=== PATIENT | female | born 1940 | race African-American/Black ===

== ENCOUNTER 2021-05-01 01:29 | Inpatient (IN) | payer MEDICAID, MEDICARE ==
[~2021-05-01] VITALS: Ht 154.9 cm; Wt 71.7 kg
[2021-05-01] VITALS (8 sets, daily range): BP systolic 146–172; BP diastolic 74–104
--- NOTE | 2021-05-01 01:39 | NUR ---
THIS IS AN 81F BIB EMS FROM [facility] FOR CVA, PER EMS REPORT PT UNK LAST WELL PER PT SHE WAS ABLE TO AMBULATE AROUND 0800. PER EMS PT BECAME UNRESPONSIVE EN ROUTE AND REQUIRED BAGGING TO MAINTAIN SATS. WHEN PT ARRIVED PT WAS BREATHING WITHOUT ASSISTANCE, MAINTAINING AIRWAY. VSS, NADN. HOWEVER PT PRESENTS WITH SEVERE LEFT SIDED DEFICITS. PER EMS PT HAD REPORTED WANTING TO BE DNR/ DNI HOWEVER THIS IS NOT DOCUMENTED ANYWHERE.
[2021-05-01 02:00] LABS: MEAN CORPUSCULAR HEMOGLOBIN 28.5 pg (27.0-34.8); MEAN CORPUSCULAR HGB CONC 33.8 g/dL (32.4-35.8); PLATELET COUNT 181 x10^3/uL (130-400); RED BLOOD COUNT 5.04 x10^6/uL (3.82-5.3); RED CELL DISTRIBUTION WIDTH 14.6 % (9.6-15.2)
[2021-05-01] MEDS ORDERED: SODIUM CHLORIDE 0.9% 1,000 ML IV ONE (02:00)
[2021-05-01] MEDS ORDERED: SODIUM CHLORIDE FLUSH 10ML SYR IVF ONE (02:00)
[2021-05-01 02:01] LABS: BASOPHILS % (AUTO) 0 % (0-1); EOSINOPHILS % (AUTO) 0 % (1-7); LYMPHOCYTES % (AUTO) 5 % (22-44); MEAN PLATELET VOLUME 9.2 fL (7.4-10.4); MONOCYTES % (AUTO) 8 % (2-9); NEUTROPHILS % (AUTO) 87 % (42-75)
[2021-05-01 02:13] LABS: ALANINE AMINOTRANSFERASE 33 U/L (12-78); ALBUMIN 2.9 g/dL (3.4-5.0); ANION GAP 9 mmol/L (5-15); CALCIUM 9.2 mg/dL (8.5-10.1); CHLORIDE 107 mmol/L (98-107); CREATININE 0.55 mg/dL (0.55-1.02)
[2021-05-01 02:15] LABS: ALKALINE PHOSPHATASE 65 U/L (45-117); INTERNATIONAL NORMALIZED RATIO 1.08 (0.93-1.1); PROTHROMBIN TIME 11.5 Seconds (9.6-11.5); TOTAL PROTEIN 7.5 g/dL (6.4-8.2)
--- NOTE | 2021-05-01 02:28 | NUR ---
PT RESTING ON YVROSE BOOKER RESP EVEN UNLABORED AT THIS TIME
--- NOTE | 2021-05-01 03:06 | NUR ---
PT RESTING ON YVROSE BOOKER RESP EVEN UNLABORED AT THIS TIME
--- NOTE | 2021-05-01 03:09 | NUR ---
REPORT TO [facility], ALL QUESTIONS ADDRESSED PT READY FOR TRANSFER
[2021-05-01 06:01] LABS: BASOPHILS % (AUTO) 0 % (0-1); EOSINOPHILS % (AUTO) 0 % (1-7); LYMPHOCYTES % (AUTO) 4 % (22-44); MEAN CORPUSCULAR HEMOGLOBIN 28.4 pg (27.0-34.8); MEAN CORPUSCULAR HGB CONC 33.2 g/dL (32.4-35.8); MEAN PLATELET VOLUME 9.4 fL (7.4-10.4); MONOCYTES % (AUTO) 9 % (2-9); NEUTROPHILS % (AUTO) 86 % (42-75); PLATELET COUNT 166 x10^3/uL (130-400); RED BLOOD COUNT 4.87 x10^6/uL (3.82-5.3); RED CELL DISTRIBUTION WIDTH 14.8 % (9.6-15.2)
[2021-05-01] MEDS: SODIUM CHLORIDE 0.9% 1,000 ML IV SCH ×2 (06:05→15:00)
[2021-05-01 06:13] LABS: ALBUMIN 2.8 g/dL (3.4-5.0); ANION GAP 8 mmol/L (5-15); CALCIUM 9.1 mg/dL (8.5-10.1); CHLORIDE 108 mmol/L (98-107)
[2021-05-01 06:17] LABS: ALANINE AMINOTRANSFERASE 293 U/L (12-78); ALKALINE PHOSPHATASE 64 U/L (45-117); BILIRUBIN,TOTAL 0.8 mg/dL (0.2-1.0); CREATININE 0.49 mg/dL (0.55-1.02); TOTAL PROTEIN 7.1 g/dL (6.4-8.2)
[2021-05-01] MEDS: ASPIRIN 81 MG TABLET CHEW PO/NG SCH (09:00)
[2021-05-01] MEDS ORDERED: LEVO75TA PO ×2 (16:58)
[2021-05-01] MEDS ORDERED: LEVO88TA2 PO (16:58)
[2021-05-01] MEDS: ATORVASTATIN 40 MG TABLET PO SCH (21:00)
[2021-05-01] MEDS: CIPROFLOXACIN OPHTH SOLN 0.3%, 5ML RIGHTEYE SCH (21:12)
[2021-05-01] MEDS ORDERED: METOPROLOL 1 MG/ML, 5ML ONE (23:53)
[2021-05-02] VITALS (8 sets, daily range): BP systolic 150–182; BP diastolic 82–104
[2021-05-02] MEDS ORDERED: POTASSIUM CHLORIDE 40 MEQ in SODIUM CHLORIDE 0.9% 500 ML IV ONE
[2021-05-02] MEDS ORDERED: ADENOSINE 6 MG/2 ML IVPush ONE
[2021-05-02] MEDS: CIPROFLOXACIN OPHTH SOLN 0.3%, 5ML RIGHTEYE SCH ×6 (00:12→21:26)
[2021-05-02] MEDS ORDERED: LABETALOL 5MG/ML, 20ML IVPush ONE (04:30)
[2021-05-02 04:34] LABS: BASOPHILS % (AUTO) 0 % (0-1); EOSINOPHILS % (AUTO) 0 % (1-7); LYMPHOCYTES % (AUTO) 11 % (22-44); MEAN CORPUSCULAR HEMOGLOBIN 28.5 pg (27.0-34.8); MEAN CORPUSCULAR HGB CONC 33.2 g/dL (32.4-35.8); MEAN PLATELET VOLUME 9.5 fL (7.4-10.4); MONOCYTES % (AUTO) 6 % (2-9); NEUTROPHILS % (AUTO) 82 % (42-75); PLATELET COUNT 160 x10^3/uL (130-400); RED BLOOD COUNT 4.71 x10^6/uL (3.82-5.3); RED CELL DISTRIBUTION WIDTH 14.9 % (9.6-15.2)
[2021-05-02 04:41] LABS: ALANINE AMINOTRANSFERASE 896 U/L (12-78); ALBUMIN 2.4 g/dL (3.4-5.0); ANION GAP 6 mmol/L (5-15); CALCIUM 8.3 mg/dL (8.5-10.1); CHLORIDE 116 mmol/L (98-107)
[2021-05-02 04:50] LABS: ALKALINE PHOSPHATASE 63 U/L (45-117); BILIRUBIN,TOTAL 0.7 mg/dL (0.2-1.0); CHOL/HDL RATIO 1.9; CHOLESTEROL, TOTAL 190 mg/dL (140-239); CREATININE 0.37 mg/dL (0.55-1.02); FREE T4 (FREE THYROXINE) 1.18 ng/dL (0.76-1.46); HDL CHOL % 52 % (28-40); HDL CHOLESTEROL (DIRECT) 98 mg/dL (40-60); LDL CHOLESTEROL,CALCULATED 75 mg/dL (54-169); LDL/HDL RATIO 0.8 (0.5-3.0); TOTAL PROTEIN 6.4 g/dL (6.4-8.2); TRIGLYCERIDES 84 mg/dL (50-200); VLDL CHOLESTEROL 17 mg/dL (0-25)
[2021-05-02] MEDS: SODIUM CHLORIDE 0.9% 1,000 ML IV SCH ×2 (08:00→21:27)
[2021-05-02] MEDS: ASPIRIN 81 MG TABLET CHEW PO/NG SCH (08:54)
[2021-05-02] MEDS ORDERED: ENALAPRILAT 1.25 MG/ML, 2ML IV PRN ×2 (13:00→17:00)
[2021-05-02] MEDS ORDERED: ASPIRIN 300 MG SUPP PR ONE (13:30)
[2021-05-02] MEDS: ATORVASTATIN 40 MG TABLET PO SCH (21:26)
[2021-05-02] MEDS ORDERED: OMNIPAQUE 350 MG/ML, 75ML BOTTLE ONE (23:15)
[2021-05-03] MEDS ORDERED: KETOROLAC 30 MG/1 ML IVPush ONE (00:30)
[2021-05-03 00:44] VITALS: BP_SYST 163; BP_SYST 175; BP_DIAS 82; BP_DIAS 99
[2021-05-03 03:44] LABS: BASOPHILS % (AUTO) 0 % (0-1); EOSINOPHILS % (AUTO) 0 % (1-7); LYMPHOCYTES % (AUTO) 11 % (22-44); MEAN CORPUSCULAR HEMOGLOBIN 28.1 pg (27.0-34.8); MEAN CORPUSCULAR HGB CONC 32.9 g/dL (32.4-35.8); MEAN PLATELET VOLUME 9.5 fL (7.4-10.4); MONOCYTES % (AUTO) 8 % (2-9); NEUTROPHILS % (AUTO) 81 % (42-75); PLATELET COUNT 168 x10^3/uL (130-400); RED BLOOD COUNT 4.37 x10^6/uL (3.82-5.3); RED CELL DISTRIBUTION WIDTH 14.6 % (9.6-15.2)
[2021-05-03 03:57] LABS: CHLORIDE 115 mmol/L (98-107)
[2021-05-03 04:00] VITALS: BP 169/94
[2021-05-03 04:07] LABS: ALANINE AMINOTRANSFERASE 560 U/L (12-78); ALBUMIN 2.2 g/dL (3.4-5.0); ALKALINE PHOSPHATASE 61 U/L (45-117); ANION GAP 8 mmol/L (5-15); BILIRUBIN,TOTAL 0.9 mg/dL (0.2-1.0); CALCIUM 8.2 mg/dL (8.5-10.1); CREATININE 0.29 mg/dL (0.55-1.02); TOTAL PROTEIN 6.2 g/dL (6.4-8.2)
[2021-05-03] MEDS: LEVOTHYROXINE 88 MCG TABLET PO SCH (06:00)
[2021-05-03] MEDS: CIPROFLOXACIN OPHTH SOLN 0.3%, 5ML RIGHTEYE SCH ×5 (06:10→21:30)
[2021-05-03 08:02] VITALS: BP 185/80
[2021-05-03] MEDS: SODIUM CHLORIDE 0.9% 1,000 ML IV SCH ×2 (09:54→21:35)
[2021-05-03] MEDS: ASPIRIN 81 MG TABLET CHEW PO/NG SCH (17:30)
[2021-05-03] MEDS: ATORVASTATIN 40 MG TABLET PO SCH ×2 (21:00→21:35)
[2021-05-04 00:30] VITALS: BP 172/91
[2021-05-04] MEDS: LEVOTHYROXINE 88 MCG TABLET PO SCH ×2 (05:54→06:00)
[2021-05-04] MEDS: CIPROFLOXACIN OPHTH SOLN 0.3%, 5ML RIGHTEYE SCH ×5 (06:10→21:08)
[2021-05-04 06:33] LABS: BASOPHILS % (AUTO) 0 % (0-1); EOSINOPHILS % (AUTO) 1 % (1-7); LYMPHOCYTES % (AUTO) 10 % (22-44); MEAN CORPUSCULAR HEMOGLOBIN 28.5 pg (27.0-34.8); MEAN CORPUSCULAR HGB CONC 33.3 g/dL (32.4-35.8); MEAN PLATELET VOLUME 9.5 fL (7.4-10.4); MONOCYTES % (AUTO) 9 % (2-9); NEUTROPHILS % (AUTO) 80 % (42-75); PLATELET COUNT 169 x10^3/uL (130-400); RED CELL DISTRIBUTION WIDTH 14.5 % (9.6-15.2)
[2021-05-04 06:36] LABS: CHLORIDE 107 mmol/L (98-107)
[2021-05-04 06:42] LABS: ALBUMIN 2.1 g/dL (3.4-5.0); ANION GAP 8 mmol/L (5-15); CALCIUM 8.4 mg/dL (8.5-10.1); CREATININE 0.36 mg/dL (0.55-1.02)
[2021-05-04] MEDS ORDERED: NS + 40MEQ KCL 1,000 ML IV SCH (07:00)
[2021-05-04 07:11] VITALS: BP 167/95
[2021-05-04] MEDS: ASPIRIN 81 MG TABLET CHEW PO/NG SCH (10:56)
[2021-05-04 12:58] VITALS: BP_SYST 112; BP_SYST 155; BP_DIAS 68; BP_DIAS 82
[2021-05-04] MEDS: AMLODIPINE 5 MG TABLET NG SCH (17:49)
[2021-05-04 17:57] VITALS: BP 179/99
[2021-05-04 20:18] VITALS: BP 165/92
[2021-05-04] MEDS: ATORVASTATIN 40 MG TABLET PO SCH (20:59)
[2021-05-05 00:58] VITALS: BP 144/83
[2021-05-05] MEDS ORDERED: LEVOTHYROXINE 75 MCG TABLET PO SCH (06:00)
[2021-05-05] MEDS: CIPROFLOXACIN OPHTH SOLN 0.3%, 5ML RIGHTEYE SCH ×5 (06:18→22:48)
[2021-05-05 07:40] VITALS: BP 152/94
[2021-05-05 09:40] VITALS: BP 141/86
[2021-05-05] MEDS: AMLODIPINE 5 MG TABLET NG SCH (09:42)
[2021-05-05] MEDS: ASPIRIN 81 MG TABLET CHEW PO/NG SCH (09:43)
[2021-05-05 12:39] VITALS: BP 130/86
[2021-05-05] MEDS: LIDODERM 5% PATCH TD SCH (17:31)
[2021-05-05] MEDS ORDERED: LEVOTHYROXINE 75 MCG TABLET PO ONE (18:00)
[2021-05-05 18:58] VITALS: BP 157/84
[2021-05-05] MEDS: ATORVASTATIN 40 MG TABLET PO SCH (21:00)
[2021-05-06 02:16] VITALS: BP 150/80
[2021-05-06] MEDS: CIPROFLOXACIN OPHTH SOLN 0.3%, 5ML RIGHTEYE SCH ×5 (05:55→21:39)
[2021-05-06] MEDS ORDERED: LEVOTHYROXINE 75 MCG TABLET PO SCH (06:00)
[2021-05-06 07:28] VITALS: BP 149/92
[2021-05-06 07:38] VITALS: BP 149/92
[2021-05-06] MEDS: ASPIRIN 81 MG TABLET CHEW PO/NG SCH (11:31)
[2021-05-06] MEDS: AMLODIPINE 5 MG TABLET NG SCH (11:31)
[2021-05-06] MEDS ORDERED: SODIUM CHLORIDE NASAL SPRAY 45ML BOTTLE NAS PRN (15:00)
[2021-05-06 18:00] VITALS: BP 132/79
[2021-05-06] MEDS: LISINOPRIL 20 MG TABLET NG SCH (18:21)
[2021-05-06] MEDS: LIDODERM 5% PATCH TD SCH (18:22)
[2021-05-06] MEDS: ATORVASTATIN 40 MG TABLET PO SCH (21:39)
[2021-05-06 21:58] VITALS: BP 156/92
[2021-05-07] VITALS (7 sets, daily range): BP systolic 120–146; BP diastolic 77–84
[2021-05-07] MEDS ORDERED: MORPHINE SULFATE 4 MG/ML, 1ML IVPush PRN (05:30)
[2021-05-07] MEDS ORDERED: BACLOFEN 10 MG TABLET PO PRN (05:30)
[2021-05-07] MEDS: CIPROFLOXACIN OPHTH SOLN 0.3%, 5ML RIGHTEYE SCH ×5 (05:36→22:01)
[2021-05-07] MEDS ORDERED: LEVOTHYROXINE 75 MCG TABLET PO SCH (06:00)
[2021-05-07] MEDS: AMLODIPINE 5 MG TABLET NG SCH (10:07)
[2021-05-07] MEDS: LISINOPRIL 20 MG TABLET NG SCH (10:07)
[2021-05-07] MEDS: ASPIRIN 81 MG TABLET CHEW PO/NG SCH (10:07)
[2021-05-07 12:39] LABS: BASOPHILS % (AUTO) 0 % (0-1); EOSINOPHILS % (AUTO) 3 % (1-7); LYMPHOCYTES % (AUTO) 12 % (22-44); MEAN CORPUSCULAR HEMOGLOBIN 27.5 pg (27.0-34.8); MEAN CORPUSCULAR HGB CONC 32.1 g/dL (32.4-35.8); MEAN PLATELET VOLUME 9.5 fL (7.4-10.4); MONOCYTES % (AUTO) 9 % (2-9); NEUTROPHILS % (AUTO) 76 % (42-75); PLATELET COUNT 202 x10^3/uL (130-400); RED BLOOD COUNT 5.03 x10^6/uL (3.82-5.3); RED CELL DISTRIBUTION WIDTH 14.2 % (9.6-15.2)
[2021-05-07 13:00] LABS: ANION GAP 6 mmol/L (5-15); CALCIUM 9.5 mg/dL (8.5-10.1); CHLORIDE 107 mmol/L (98-107); CREATININE 0.42 mg/dL (0.55-1.02)
[2021-05-07] MEDS ORDERED: POTASSIUM CHLORIDE 20 MEQ PACKET NG SCH (16:00)
[2021-05-07] MEDS: LIDODERM 5% PATCH TD SCH (16:54)
[2021-05-07] MEDS: POLYETHYLENE GLYCOL 17 GM PACKET NG SCH (20:32)
[2021-05-07] MEDS: ATORVASTATIN 40 MG TABLET PO SCH (20:32)
[2021-05-07] MEDS ORDERED: MORPHINE SULFATE 4 MG/ML, 1ML IVPush ONE (21:30)
[2021-05-08] VITALS (8 sets, daily range): BP systolic 105–157; BP diastolic 54–85
[2021-05-08] MEDS: CIPROFLOXACIN OPHTH SOLN 0.3%, 5ML RIGHTEYE SCH ×5 (05:25→21:03)
[2021-05-08] MEDS ORDERED: LEVOTHYROXINE 75 MCG TABLET PO SCH (06:00)
[2021-05-08] MEDS: POLYETHYLENE GLYCOL 17 GM PACKET NG SCH ×2 (09:00→20:01)
[2021-05-08] MEDS ORDERED: PROPOFOL 10 MG/ML, 20ML ONE (13:14)
[2021-05-08] MEDS ORDERED: LIDOCAINE-MPF 2%, 2ML ONE (13:15)
[2021-05-08] MEDS: AMLODIPINE 5 MG TABLET NG SCH (16:40)
[2021-05-08] MEDS: ASPIRIN 81 MG TABLET CHEW PO/NG SCH (16:41)
[2021-05-08] MEDS: LISINOPRIL 20 MG TABLET NG SCH (16:41)
[2021-05-08] MEDS: LIDODERM 5% PATCH TD SCH ×2 (16:41→17:00)
[2021-05-08] MEDS ORDERED: morphine SULFATE 10 MG/ML, 1ML IVPush ONE (18:00)
[2021-05-08] MEDS: FAMOTIDINE 40 MG/5 ML ORAL SUSP PEG SCH (20:02)
[2021-05-08] MEDS: ATORVASTATIN 40 MG TABLET PO SCH (20:02)
[2021-05-09] VITALS (8 sets, daily range): BP systolic 96–145; BP diastolic 64–87
[2021-05-09 05:05] LABS: BASOPHILS % (AUTO) 0 % (0-1); EOSINOPHILS % (AUTO) 1 % (1-7); LYMPHOCYTES % (AUTO) 6 % (22-44); MEAN CORPUSCULAR HEMOGLOBIN 28.2 pg (27.0-34.8); MEAN CORPUSCULAR HGB CONC 32.9 g/dL (32.4-35.8); MEAN PLATELET VOLUME 9.8 fL (7.4-10.4); MONOCYTES % (AUTO) 7 % (2-9); NEUTROPHILS % (AUTO) 86 % (42-75); PLATELET COUNT 227 x10^3/uL (130-400); RED BLOOD COUNT 4.34 x10^6/uL (3.82-5.3); RED CELL DISTRIBUTION WIDTH 14.3 % (9.6-15.2)
[2021-05-09 05:13] LABS: ANION GAP 7 mmol/L (5-15); CHLORIDE 107 mmol/L (98-107)
[2021-05-09 05:17] LABS: ALANINE AMINOTRANSFERASE 81 U/L (12-78); ALBUMIN 2.1 g/dL (3.4-5.0); ALKALINE PHOSPHATASE 65 U/L (45-117); BILIRUBIN,TOTAL 0.6 mg/dL (0.2-1.0); CALCIUM 8.8 mg/dL (8.5-10.1); CREATININE 0.44 mg/dL (0.55-1.02); TOTAL PROTEIN 6.2 g/dL (6.4-8.2)
[2021-05-09] MEDS ORDERED: LEVOTHYROXINE 75 MCG TABLET PO SCH (06:00)
[2021-05-09] MEDS: CIPROFLOXACIN OPHTH SOLN 0.3%, 5ML RIGHTEYE SCH ×5 (06:34→22:47)
[2021-05-09] MEDS: AMLODIPINE 5 MG TABLET NG SCH (08:12)
[2021-05-09] MEDS: POLYETHYLENE GLYCOL 17 GM PACKET NG SCH ×2 (08:13→21:34)
[2021-05-09] MEDS: LISINOPRIL 20 MG TABLET NG SCH (08:13)
[2021-05-09] MEDS: ASPIRIN 81 MG TABLET CHEW PO/NG SCH (08:13)
[2021-05-09] MEDS: OXYcodone IR 5MG TABLET PO PRN ×2 (11:43→21:35)
[2021-05-09] MEDS: LIDODERM 5% PATCH TD SCH (16:00)
[2021-05-09] MEDS: FAMOTIDINE 40 MG/5 ML ORAL SUSP PEG SCH (21:34)
[2021-05-09] MEDS: ATORVASTATIN 40 MG TABLET PO SCH (21:34)
[2021-05-10] VITALS (8 sets, daily range): BP systolic 123–152; BP diastolic 76–84
[2021-05-10] MEDS: OXYcodone IR 5MG TABLET PO PRN (05:04)
[2021-05-10] MEDS: LEVOTHYROXINE 88 MCG TABLET PO SCH (05:05)
[2021-05-10] MEDS: CIPROFLOXACIN OPHTH SOLN 0.3%, 5ML RIGHTEYE SCH ×5 (05:06→20:55)
[2021-05-10 05:36] LABS: BASOPHILS % (AUTO) 0 % (0-1); EOSINOPHILS % (AUTO) 1 % (1-7); LYMPHOCYTES % (AUTO) 5 % (22-44); MEAN CORPUSCULAR HEMOGLOBIN 27.8 pg (27.0-34.8); MEAN CORPUSCULAR HGB CONC 32.6 g/dL (32.4-35.8); MEAN PLATELET VOLUME 10.3 fL (7.4-10.4); MONOCYTES % (AUTO) 6 % (2-9); NEUTROPHILS % (AUTO) 87 % (42-75); PLATELET COUNT 258 x10^3/uL (130-400); RED BLOOD COUNT 4.49 x10^6/uL (3.82-5.3); RED CELL DISTRIBUTION WIDTH 14.3 % (9.6-15.2)
[2021-05-10 05:47] LABS: CHLORIDE 108 mmol/L (98-107)
[2021-05-10 05:53] LABS: ANION GAP 4 mmol/L (5-15); CREATININE 0.44 mg/dL (0.55-1.02)
[2021-05-10] MEDS: LISINOPRIL 20 MG TABLET NG SCH (09:03)
[2021-05-10] MEDS: AMLODIPINE 5 MG TABLET NG SCH (09:04)
[2021-05-10] MEDS: POLYETHYLENE GLYCOL 17 GM PACKET NG SCH ×2 (09:04→20:55)
[2021-05-10] MEDS: ASPIRIN 81 MG TABLET CHEW PO/NG SCH (09:10)
[2021-05-10] MEDS ORDERED: CIPR2.5D2 RIGHTEYE (13:25)
[2021-05-10] MEDS ORDERED: BACL-19 PO (13:25)
[2021-05-10] MEDS ORDERED: POLY17PO5 NG (13:25)
[2021-05-10] MEDS ORDERED: ASPI-963 PO/NG (13:25)
[2021-05-10] MEDS ORDERED: SODI44SP NAS (13:25)
[2021-05-10] MEDS ORDERED: LISI-170 NG (13:25)
[2021-05-10] MEDS ORDERED: AMLO-150 NG (13:25)
[2021-05-10] MEDS ORDERED: LIDO700A20 TD (13:25)
[2021-05-10] MEDS ORDERED: ATOR40TA78 PO (13:25)
[2021-05-10] MEDS ORDERED: FAMO40OR3 PEG (13:25)
[2021-05-10] MEDS: LIDODERM 5% PATCH TD SCH (16:00)
[2021-05-10] MEDS: ATORVASTATIN 40 MG TABLET PO SCH (20:55)
[2021-05-10] MEDS: FAMOTIDINE 40 MG/5 ML ORAL SUSP PEG SCH (20:55)
[2021-05-11] VITALS (10 sets, daily range): BP systolic 115–164; BP diastolic 72–95
[2021-05-11] MEDS: CIPROFLOXACIN OPHTH SOLN 0.3%, 5ML RIGHTEYE SCH ×5 (06:32→23:54)
[2021-05-11] MEDS: LEVOTHYROXINE 88 MCG TABLET PO SCH (06:32)
[2021-05-11] MEDS: LISINOPRIL 20 MG TABLET NG SCH (10:15)
[2021-05-11] MEDS: POLYETHYLENE GLYCOL 17 GM PACKET NG SCH ×2 (10:15→21:00)
[2021-05-11] MEDS: AMLODIPINE 5 MG TABLET NG SCH (10:16)
[2021-05-11] MEDS: ASPIRIN 81 MG TABLET CHEW PO/NG SCH (10:16)
[2021-05-11] MEDS ORDERED: LACTULOSE 20 GM/30 ML UDC PO ONE (12:30)
[2021-05-11] MEDS: OXYcodone IR 5MG TABLET PO PRN (13:16)
[2021-05-11] MEDS ORDERED: PINK LADY ENEMA 490 ML BOTTLE PR ONE (16:00)
[2021-05-11] MEDS: LIDODERM 5% PATCH TD SCH (16:35)
[2021-05-11] MEDS: ATORVASTATIN 40 MG TABLET PO SCH (23:54)
[2021-05-11] MEDS: FAMOTIDINE 40 MG/5 ML ORAL SUSP PEG SCH (23:54)
[2021-05-12 00:48] VITALS: BP 144/85
[2021-05-12] MEDS: CIPROFLOXACIN OPHTH SOLN 0.3%, 5ML RIGHTEYE SCH ×2 (05:45→11:11)
[2021-05-12 08:03] VITALS: BP 157/94
[2021-05-12] MEDS: POLYETHYLENE GLYCOL 17 GM PACKET NG SCH (09:00)
[2021-05-12] MEDS: ASPIRIN 81 MG TABLET CHEW PO/NG SCH (11:10)
[2021-05-12] MEDS: AMLODIPINE 5 MG TABLET NG SCH (11:11)
[2021-05-12] MEDS: LISINOPRIL 20 MG TABLET NG SCH (11:11)
== END 2021-05-12 12:21 | DRG 64 ==
LOC: ED 02:37 → ICU 03:19 → 4WST 17:21
PROVIDERS: ADMIT Internal Medicine; ATTEND Hospitalist
PROC: 3E0G76Z Introduction of Nutritional Substance into Upper GI, Via Natural or Artificial Opening (ICD-10-PCS; 2021-05-08)
PROC: 0DH63UZ Insertion of Feeding Device into Stomach, Percutaneous Approach (ICD-10-PCS; principal; 2021-05-08 13:00)
DX: I63.411 Cerebral infarction due to embolism of right middle cerebral artery (principal); I61.9 Nontraumatic intracerebral hemorrhage, unspecified; I26.99 Other pulmonary embolism without acute cor pulmonale; G93.6 Cerebral edema; R41.4 Neurologic neglect syndrome; I50.32 Chronic diastolic (congestive) heart failure; I47.1 Supraventricular tachycardia; G81.94 Hemiplegia, unspecified affecting left nondominant side; R47.01 Aphasia; E03.9 Hypothyroidism, unspecified; E87.6 Hypokalemia; H53.40 Unspecified visual field defects; I11.0 Hypertensive heart disease with heart failure; R13.12 Dysphagia, oropharyngeal phase; K59.00 Constipation, unspecified; K44.9 Diaphragmatic hernia without obstruction or gangrene; K22.2 Esophageal obstruction; K29.60 Other gastritis without bleeding; Z86.711 Personal history of pulmonary embolism; Z79.82 Long term (current) use of aspirin; Z79.899 Other long term (current) drug therapy; Z80.3 Family history of malignant neoplasm of breast; Z80.41 Family history of malignant neoplasm of ovary; Z88.8 Allergy status to other drugs, medicaments and biological substances
CPT/HCPCS: 36415; 70450; 70551; 71275; 74018; 74230; 80048; 80053; 80061; 80069; 82962; 83036; 83735; 84439; 84443; 85025; 85610; 85730; 87338; 87635; 93005; 93306; 93880; 95816; 99285; B4087; G0378; J0153; J1885; J2704; J3480; Q9967; 92523-GN; J2270; J7030; J7040